=== PATIENT | male | born 1990 | race African-American/Black ===

== ENCOUNTER 2018-07-03 03:29 | Emergency (ER) | payer BC ==
--- NOTE | 2018-07-03 03:46 | EDM.PDOC ---
ED HPI GENERAL MEDICAL PROBLEM - General Chief Complaint: Headache Stated Complaint: HEADACHE, CONGESTION Time Seen by Provider: 07/03/18 03:40 - History of Present Illness INITIAL COMMENTS - FREE TEXT/NARRATIVE: HISTORY AND PHYSICAL: History of present illness: Patient is a 27-year-old male with a five-day history of sinus pressure and drainage occasional cough and now sore throat body aches and malaise. He has a headache which he describes as behind his eyes and his face bilaterally. He did not get his flu shot this year. He has been using [id number] Mucinex but nothing specifically for his sinuses and occasional Tylenol. He has no abdominal pain vomiting or diarrhea. He says that the sore throat started today. Review of systems: As per history of present illness and below otherwise all systems reviewed and negative. Past medical history: As per history of present illness and as reviewed below otherwise noncontributory. Surgical history: As per history of present illness and as reviewed below otherwise noncontributory. Social history: No reported history of drug or alcohol abuse. Family history: As per history of present illness and as reviewed below otherwise noncontributory. Physical exam: General: Well-developed overweight man who is nontoxic and vital signs are noted by me. Is a nasal quality to voice but his voice is not muffled or hoarse HEENT: Atraumatic, normocephalic, pupils reactive, negative for conjunctival pallor or scleral icterus, mucous membranes moist, throat clear with there is some posterior oropharyngeal erythema but no cervical adenopathy or nuchal rigidity, neck supple, nontender, trachea midline. Turbinates are boggy bilaterally and there is some maxillary sinus tenderness bilaterally Lungs: Clear to auscultation, breath sounds equal bilaterally, chest nontender. Heart: S1S2, regular rate and rhythm no overt murmurs Abdomen: Soft, nondistended, nontender. NABS Pelvis: Deferred Genitourinary: Deferred. Rectal: Deferred. Extremities: Atraumatic, full range of motion without defects or deficits Neurovascular unremarkable. Neuro: Awake, alert, oriented. Cranial nerves II through XII unremarkable. Cerebellum unremarkable. Motor and sensory unremarkable throughout. Exam nonfocal. Diagnostics: Influenza rapid strep The patient is aware of testing results and that he is outside of the window for Tamiflu [employer]rapeutics: Influenza A Impression: [] Definitive disposition and diagnosis as appropriate pending reevaluation and review of above. generalized Pain Score (Numeric/FACES): 5 - Related Data Allergies Allergy/AdvReac Type Severity Reaction Status Date / Time No Known Allergies Allergy Verified 07/03/18 03:41 Home Meds: Home Meds . [No Known Home Meds] 07/03/18 [History] ED ROS GENERAL - Review of Systems Review Of Systems: ROS reveals no pertinent complaints other than HPI. ED EXAM, GENERAL - Physical Exam Exam: See Below (See dictation) Course - Vital Signs Last Recorded V/S: Last Vital Signs Temp 38.0 C 07/03/18 03:41 Pulse 101 H 07/03/18 03:41 Resp 18 07/03/18 03:41 BP 116/77 07/03/18 03:41 Pulse Ox 98 07/03/18 03:41 - Orders/Labs/Meds Orders: Active Orders 24 hr Category Date Time Status CULTURE STREP A CONFIRMATION [] Stat Lab 07/03/18 04:00 Results STREP SCRN A RAPID W CULT CONF [RM] Stat Lab 07/03/18 04:00 Results Departure - Departure Time of Disposition: 04:26 Disposition: Home, Self-Care 01 Condition: Good Clinical Impression: Influenza A - Discharge Information Referrals: PCP,None [Primary Care Provider] - Forms: ED Department Discharge Additional Instructions: The following information is given to patients seen in the emergency department who are being discharged to home. This information is to outline your options for follow-up care. We provide all patients seen in our emergency department with a follow-up referral. The need for follow-up, as well as the timing and circumstances, are variable depending upon the specifics of your emergency department visit. If you don't have a primary care physician on staff, we will provide you with a referral. We always advise you to contact your personal physician following an emergency department visit to inform them of the circumstance of the visit and for follow-up with them and/or the need for any referrals to a consulting specialist. The emergency department will also refer you to a specialist when appropriate. This referral assures that you have the opportunity for followup care with a specialist. All of these measure are taken in an effort to provide you with optimal care, which includes your followup. Under all circumstances we always encourage you to contact your private physician who remains a resource for coordinating your care. When calling for followup care, please make the office aware that this follow-up is from your recent emergency room visit. If for any reason you are refused follow-up, please contact the [facility] emergency department at and ask to speak to the emergency department charge nurse. [facility] Primary care- Internal Medicine and Family [address] [address] Please use [id number] Tylenol or ibuprofen for pain and also takes over- the-counter Claritin Lizeth or Benadryl to help dry out the fluid in her sinuses. Which hydration and juices and electrolyte solutions and rest as much as possible. You may use any [id number] product that you choose for other symptomatology. Schedule a follow-up appointment with your provider or one of ours in the next few days for reevaluation and further care and return to the ER as needed and as discussed - My Orders Last 24 Hours: My Active Orders 07/03/18 04:00 CULTURE STREP A CONFIRMATION [RM] Stat STREP SCRN A RAPID W CULT CONF [] Stat - Assessment/Plan Last 24 Hours: My Active Orders 07/03/18 04:00 CULTURE STREP A CONFIRMATION [RM] Stat STREP SCRN A RAPID W CULT CONF [] Stat
== END 2018-07-03 04:43 | disposition home or self-care (01) ==
LOC: MW.ED 03:29
DX: J10.1 Influenza due to other identified influenza virus with other respiratory manifestations (principal)
CPT/HCPCS: 87081; 87804; 87880-QW; 99283